=== PATIENT | male | born 1970 | race Caucasian/White ===

== ENCOUNTER 2022-03-29 17:18 | Inpatient (IN) | payer BC ==
--- NOTE | 2022-03-29 17:51 | RAD REPORT ---
EXAM DESCRIPTION: RAD - Chest Single View - 03/29/2022 5:46 pm CLINICAL HISTORY: hypoxic, tachypneic Chest pain. COMPARISON: No comparisons FINDINGS: Portable technique limits examination quality. The lungs are grossly clear. The heart is normal in size. No displaced fractures. IMPRESSION: No acute intrathoracic process suspected.
[2022-03-29] MEDS ORDERED: NA CHLORIDE 0.9% 2,000 ML ONE (18:05)
[2022-03-29 18:10] LABS: Absolute Lymphocytes (CBC) 3.7 K/uL (0.7-4.9); Hematocrit 47.5 % (39.6-49.0); Lymphocytes % 16.4 % (15.3-44.8); MPV 8.5 fL (7.6-11.3)
[2022-03-29 18:12] LABS: Protime INR 1.14
[2022-03-29] MEDS ORDERED: NA CHLORIDE 0.9% 1,000 ML ONE ×2 (18:19→21:32)
[2022-03-29 18:30] LABS: Barbiturates NEGATIVE (NEGATIVE); Benzodiazepines POSITIVE (NEGATIVE); Cocaine NEGATIVE (NEGATIVE); METHAMPHETAM NEGATIVE (NEGATIVE); Methadone NEGATIVE (NEGATIVE); Opiates NEGATIVE (NEGATIVE); Phencyclidine NEGATIVE (NEGATIVE); THC Cannibis NEGATIVE (NEGATIVE)
[2022-03-29 18:30] LABS: ALT/SGPT 69 U/L (12-78); AST/SGOT 47 U/L (15-37); Alkaline Phosphatase 81 U/L (45-117); BUN Blood Urea Nitrogen 29 mg/dL (7-18); Bicarbonate 22 mmol/L (21-32); Bilirubin Direct 0.5 mg/dL (0-0.2); Bilirubin Total 1.7 mg/dL (0.2-1.0); Glomerular Filtration Rate 34 ml/min (=/>90); Glucose Level 200 mg/dL (74-106); Potassium 3.6 mmol/L (3.5-5.1); Protein, Total 7.8 g/dL (6.4-8.2); Sodium Level 138 mmol/L (136-145)
[2022-03-29] MEDS ORDERED: NOREPINEPHRINE BITARTRATE/D5W 4 MG/250 ML BAG IV ONE (18:40)
[2022-03-29 20:41] LABS: Blood O2 Saturation 99.5 % (92-98.5)
[2022-03-29 20:42] LABS: Arterial Blood Carboxyhemoglob 0.9 % (0-1.5); Blood Gas Oxyhemoglobin 97.4 % (94-97)
--- NOTE | 2022-03-29 21:31 | P.HP ---
Certification for Inpatient Patient admitted to: Inpatient With expected LOS: <2 Midnights Patient will require the following post-hospital care: Other Practitioner: I am a practitioner with admitting privileges, knowledge of patient current condition, hospital course, and medical plan of care. Services: Services provided to patient in accordance with Admission requirements found in Title 42 Section 412.3 of the Code of Federal Regulations Patient History Date of Service: 03/30/22 Reason for admission: Benzo OD History of Present Illness: Patient is a 52-year-old male with hypertension who presented to the ED after attempted suicide attempt. Patient reports that he took 3 5mg Valium pills and then attempted to hang himself with a dog collar, but it snapped. He reports that he has been having suicidal ideations on and off for 10 years. His mother recently which has caused an increase in his stress. Patient was hypoxic on room air and eventually escalated to requiring BiPAP. ABG with pH of 7.25, PO2 424, bicarb 18.6. CT traumagram was negative. Labs significant for WBC 22.6, BUN 29, creatinine 2.29, CK5 85, UDS positive for benzos. He was initially hypotensive and requiring Levophed, but has since been weaned off. He is still requiring bipap, but is now resting comfortably. Patient is admitted for further management. Allergies No Known Allergies Allergy (Unverified 03/29/22 22:01) Home medications list reviewed: Yes - Past Medical/Surgical History Diabetic: No -: Hypertension -: Appendectomy Psychosocial/ Personal History: Patient is . - Family History Family History: Reviewed- Non-Contributory - Social History Smoking Status: Never smoker Alcohol use: Yes CD- Drugs: No Caffeine use: Yes Place of Residence: Home Review of Systems Gastrointestinal: Abdominal Pain Physical Examination - Physical Exam General: Alert, In no apparent distress HEENT: Atraumatic, PERRLA, EOMI, Sclerae nonicteric Neck: Supple, 2+ carotid pulse no bruit, No LAD, Without JVD or thyroid abnormality Respiratory: Clear to auscultation bilaterally, Normal air movement Cardiovascular: Regular rate/rhythm, Normal S1 S2 Gastrointestinal: Normal bowel sounds, No tenderness Musculoskeletal: No tenderness Integumentary: No rashes Neurological: Normal speech, Normal strength at 5/5 x4 extr, Normal tone, Normal affect - Studies Laboratory Data (last 24 hrs) 03/29/22 17:53: PT 12.5, INR 1.14, APTT 31.7 03/29/22 17:53: WBC 22.60 H*, Hgb 16.1, Hct 47.5, Plt Count 201 03/29/22 17:53: Sodium 138, Potassium 3.6, BUN 29 H, Creatinine 2.29 H, Glucose 200 H, Total Bilirubin 1.7 H, AST 47 H, ALT 69, Alkaline Phosphatase 81 Assessment and Plan - Problems (Diagnosis) (1) Benzodiazepine (tranquilizer) overdose Current Visit: Yes Status: Acute Qualifiers: Encounter type: initial encounter Injury intent: intentional self-harm Qualified Code(s): T42.4X2A - Poisoning by benzodiazepines, intentional self- harm, initial encounter (2) Acute respiratory failure Current Visit: Yes Status: Acute Qualifiers: Respiratory failure complication: hypoxia Qualified Code(s): J96.01 - Acute respiratory failure with hypoxia (3) Hypotension Current Visit: Yes Status: Acute Qualifiers: Hypotension type: hypotension due to drug Qualified Code(s): I95.2 - Hypotension due to drugs - Plan Patient requiring BiPAP at this time. Continue as needed and monitor pulse oximetry. Continue IV fluid hydration. Monitor BP closely. Patient no longer requiring Levophed. Leukocytosis likely reactive. No indication for antibiotics at this time. Recheck CBC in the morning. Psychiatry consult. Case management consult as patient will likely need inpatient psychiatry upon disposition. Monitor and replete electrolytes per protocol. Reconcile and continue home medications. Lovenox for VTE ppx. Full code. Discharge Plan: Psychiatry Plan to discharge in: Greater than 2 days - Advance Directives Does patient have a Living Will: No Does patient have a Durable POA for Healthcare: No - Code Status/Comfort Care Code Status Assessed: Yes (Full) Critical Care: No Time Spent Managing Pts Care (In Minutes): 50
[2022-03-29] MEDS ORDERED: ACETAMINOPHEN 500 MG TAB PO PRN (22:02)
[2022-03-29] MEDS: NA CHLORIDE 0.9% 1,000 ML IV SCH (22:02)
[2022-03-29] MEDS ORDERED: ONDANSETRON 4 MG/2 ML VIAL IV PRN (22:02)
[2022-03-29 22:05] VITALS: BMI 28.2
[2022-03-29 22:07] LABS: SARS-CoV-2 Antigen Rapid Res Negative (Negative)
--- NOTE | 2022-03-30 01:03 | ER ---
Nurse's Notes [facility] Name: Jose Ball Age: 52 yrs Sex: Male : 1970 Arrival Date: 03/29/2022 Time: 17:19 Bed 5 Private MD: Diagnosis: Poisoning by benzodiazepines, intentional self-harm;Suicide attempt;Hypotension, unspecified Presentation: 03/29 18:05 Note C-SSRS paperwork not done upon pts arrival as pts medical condition was critical tw2 and [employer] computer system was down. 20:15 Acuity: CONCHITA 1 as6 Historical: - Allergies: 20:53 No Known Allergies; rt - Home Meds: 22:00 losartan oral [Active]; as6 - PMHx: 22:00 Hypertensive disorder; as6 - PSHx: 22:00 Appendectomy; as6 - Unable to obtain history due to: altered mental status. Assessment: 20:16 General: see paper charting for triage and prior vitals . as6 20:23 General: pt on BiPAP. at bedside. Levophed discontinued . as6 Vital Signs: 20:17 BP 115 / 82; Pulse 92; Resp 24 S; Temp 96.4(C); Pulse Ox 100% on 80% BiPAP; as6 21:47 BP 93 / 72; Pulse 68; Resp 17 S; Temp 97.5(C); Pulse Ox 100% on 80% BiPAP; as6 ED Course: 17:19 Patient arrived in ED. rn 17:19 Sukhjinder White MD is Attending Physician. rn 17:23 Kasey Gamino RN is Primary Nurse. tw2 19:55 Attending Physician role handed off by Sukhjinder White MD rt 19:55 William Keys MD is Attending Physician. rt 20:15 Triage completed. as6 20:45 Gema Olvera PA-C is Hospitalizing Provider. rt 03/30 01:09 RAD In Process Unspecified. EDMS 19:12 Primary Nurse role handed off by Kasey Gamino RN [email or web address] 03/31 09:00 Carmel Dial, JEANNE is Primary Nurse. ko1 Administered Medications: No medications were administered Outcome: 03/29 20:45 Decision to Hospitalize by Provider. rt 03/31 19:53 Patient left the ED. as6 Signatures: Dispatcher Yours Florally Sukhjinder Day MD MD rn Kasey Gamino RN RN tw2 Rupinder Hoff 2 Chetan Solorzano RN RN as6 Carmel Dial RN RN ko1 William Keys MD MD rt
--- NOTE | 2022-03-30 01:03 | EDPHYS ---
Physician Documentation [facility] Name: Jose Ball Age: 52 yrs Sex: Male : 1970 Arrival Date: 03/29/2022 Time: 17:19 Bed 5 Private MD: ED Physician William Keys HPI: 03/29 20:51 This 52 yrs old Male presents to ER via Unassigned with complaints of Intentional rt overdose. 20:51 Intentional overdose. Onset: The symptoms/episode began/occurred acutely. Severity of rt symptoms: At their worst the symptoms were severe. Presents to the ED with initial suicide attempt by taking several Valium pills. Attempted to hang himself by a dog collar but it snapped. Abdominal pain, generalized. Denies other acute complaints at this time, symptoms are severe in severity, no other aggravating or alleviating factors.. Historical: - Allergies: 20:53 No Known Allergies; rt - Home Meds: 22:00 losartan oral [Active]; as6 - PMHx: 22:00 Hypertensive disorder; as6 - PSHx: 22:00 Appendectomy; as6 - Unable to obtain history due to: altered mental status. ROS: 20:53 Unable to obtain ROS due to altered mental status. rt Exam: 20:53 Constitutional: This is a well developed, well nourished patient who is awake, alert, rt and in no acute distress. Head/Face: Normocephalic, atraumatic. Eyes: Pupils equal round and reactive to light, extra-ocular motions intact. Lids and lashes normal. Conjunctiva and sclera are non-icteric and not injected. Cornea within normal limits. Periorbital areas with no swelling, redness, or edema. ENT: Nares patent. No nasal discharge, no septal abnormalities noted. Tympanic membranes are normal and external auditory canals are clear. Oropharynx with no redness, swelling, or masses, exudates, or evidence of obstruction, uvula midline. Mucous membranes moist. Neck: Trachea midline, no thyromegaly or masses palpated, and no cervical lymphadenopathy. Supple, full range of motion without nuchal rigidity, or vertebral point tenderness. No Meningismus. Chest/axilla: Normal chest wall appearance and motion. Nontender with no deformity. No lesions are appreciated. Cardiovascular: Regular rate and rhythm with a normal S1 and S2. No gallops, murmurs, or rubs. Normal PMI, no JVD. No pulse deficits. Respiratory: Lungs have equal breath sounds bilaterally, clear to auscultation and percussion. No rales, rhonchi or wheezes noted. No increased work of breathing, no retractions or nasal flaring. Skin: Warm, dry with normal turgor. Normal color with no rashes, no lesions, and no evidence of cellulitis. MS/ Extremity: Pulses equal, no cyanosis. Neurovascular intact. Full, normal range of motion. 20:53 Neuro: Confusion, moves all 4 extremities equally. 20:53 Psych: Reports SI, denies HI. Vital Signs: 20:17 BP 115 / 82; Pulse 92; Resp 24 S; Temp 96.4(C); Pulse Ox 100% on 80% BiPAP; as6 21:47 BP 93 / 72; Pulse 68; Resp 17 S; Temp 97.5(C); Pulse Ox 100% on 80% BiPAP; as6 MDM: 17:19 Patient medically screened. rn 20:47 ED course: Patient charting on paper per downtime. rt 20:53 Differential Diagnosis Salicylate overdose acetaminophen overdose vascular injury, rt benzodiazepine overdose. Data reviewed: vital signs, nurses notes, EMS record, lab test result(s), radiologic studies. ED course: Patient presents to the ED with intentional overdose, patient became hypotensive, central line placed by Dr. White improved with hemodynamics on Levophed. Patient with improvement of mental status. Will be admitted to the ICU for further care.. 03/29 17:22 Order name: Acetaminophen rn 03/29 17:22 Order name: Basic Metabolic Panel rn 03/29 17:22 Order name: CBC with Diff rn 03/29 17:22 Order name: ETOH Level rn 03/29 17:22 Order name: Hepatic Function rn 03/29 17:22 Order name: PT-INR rn 03/29 17:22 Order name: Ptt, Activated rn 03/29 17:22 Order name: Salicylate rn 03/29 17:22 Order name: Urine Drug Screen rn 03/29 20:59 Order name: SARS RAPID as6 03/30 00:59 Order name: ABG Arterial Blood Gas; Complete Time: 07:46 EDMS 03/30 01:00 Order name: Creatine Phosphokinase; Complete Time: 07:46 EDKS 03/30 01:00 Order name: SARS-COV-2 Antigen Rapid; Complete Time: 07:46 EDKS 03/30 03:16 Order name: CBC with Automated Diff; Complete Time: 07:46 EDKS 03/29 17:22 Order name: EKG; Complete Time: 17:23 rn 03/29 17:22 Order name: EKG - Nurse/Tech; Complete Time: 20:24 rn 03/29 17:22 Order name: IV Saline Lock; Complete Time: 20:24 rn 03/29 17:22 Order name: XRAY Chest (1 view) rn 03/29 17:22 Order name: Neck Angio CT rn 03/29 17:22 Order name: CT Traumagram (Head C Spine CAP wo con) rn 03/30 00:58 Order name: RAD EDKS 03/30 03:36 Order name: Comprehensive Metabolic Panel; Complete Time: 07:46 EDKS 03/30 03:36 Order name: Phosphorus; Complete Time: 07:46 EDKS 03/30 03:36 Order name: Lipid Profile; Complete Time: 07:46 EDKS 03/30 03:36 Order name: Magnesium; Complete Time: 07:46 EDKS 03/30 03:36 Order name: Thyroid Stimulating Hormone; Complete Time: 07:46 EDKS 03/30 12:42 Order name: CT EDKS 03/30 14:03 Order name: Glucose, Ancillary Testing EDKS 03/31 05:07 Order name: CBC with Automated Diff EDKS 03/31 05:13 Order name: Comprehensive Metabolic Panel EDKS 03/29 17:22 Order name: Labs collected and sent; Complete Time: 20:24 rn 03/29 17:22 Order name: Suicide Precautions; Complete Time: 20:24 rn 03/29 17:22 Order name: Suicide Screening ([place]); Complete Time: 20:24 rn 03/29 17:22 Order name: Urine Dipstick-Ancillary (obtain specimen); Complete Time: 20:24 rn Administered Medications: No medications were administered Disposition Summary: 03/29/22 20:45 Hospitalization Ordered Hospitalization Status: Inpatient Admission rt Provider: Gema Olvera rt Condition: Guarded rt Problem: new rt Symptoms: have improved rt Bed/Room Type: Standard rt Location: Intensive Care Unit(03/31/22 18:50) dw Room Assignment: 6-(03/31/22 18:50) dw Diagnosis - Poisoning by benzodiazepines, intentional self-harm rt - Suicide attempt rt - Hypotension, unspecified rt Forms: - Medication Reconciliation Form rt - SBAR form rt Critical care time excluding procedures: 20:53 Critical care time: Bedside Care: 30 minutes, Consultation: 5 minutes. Total time: 35 rt minutes Signatures: Dispatcher [employer] Lulú Morrison RN RN Sukhjinder White MD MD rn Garcia, Cindy, RN RN cg Chetan Solorzano RN RN as6 William Keys MD MD rt Corrections: (The following items were deleted from the chart) 22:10 20:45 Intensive Care Unit rt cg 22:10 20:45 rt cg 03/31 18:50 03/29 22:10 [facility] ER HOLD cg 03/31 18:50 03/29 22:10 ERHOLD- cg 03/31 18:50 18:50 1- dw
[2022-03-30 03:16] LABS: Absolute Lymphocytes (CBC) 0.8 K/uL (0.7-4.9); Lymphocytes % 5.9 % (15.3-44.8); MCV 93.2 fL (80-100); MPV 8.6 fL (7.6-11.3); RBC Red Blood Cell Count 4.62 M/uL (4.33-5.43)
[2022-03-30 03:31] LABS: Albumin 3.6 g/dL (3.4-5.0); Bilirubin Total 1.3 mg/dL (0.2-1.0); Magnesium 2.5 mg/dL (1.8-2.4); Phosphorus 3.6 mg/dL (2.5-4.9); Potassium 5.5 mmol/L (3.5-5.1); Protein, Total 7.2 g/dL (6.4-8.2); Thyroid Stimulating Hormone 0.66 uIU/mL (0.360-3.740)
[2022-03-30] MEDS ORDERED: INFLUENZA VACCINE (for 6+ mo) 0.5 ML DOSE IMVAC ONE (08:00)
[2022-03-30] MEDS: NA CHLORIDE 0.9% 1,000 ML IV SCH ×2 (08:02→18:02)
--- NOTE | 2022-03-30 08:21 | EKG ---
Test Date: 2022-03-29 Test Time: 17:51:01 Senior Paralegal: KITTY MEASUREMENT RESULTS: Intervals: Rate: 117 IA: 156 QRSD: 108 QT: 336 QTc: 468 [place]: P: 64 IA: 156 QRS: 61 T: 29 INTERPRETIVE STATEMENTS: Sinus tachycardia Incomplete right bundle branch block ST depression, consider subendocardial injury or digitalis effect Abnormal ECG No previous ECG available for comparison Electronically Signed On 03-30-22 08:19:45 [employer] by Homer Cisneros
[2022-03-30] MEDS: ENOXAPARIN 40 MG/0.4 ML SQ SCH (09:00)
[2022-03-30] MEDS ORDERED: NA CHLORIDE 0.9% 1,000 ML ONE ×2 (11:18→21:33)
[2022-03-30] MEDS ORDERED: ENOXAPARIN 40 MG/0.4 ML SQ ONE (11:18)
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
[2022-03-31 05:02] LABS: Absolute Lymphocytes (CBC) 1.3 K/uL (0.7-4.9); Hematocrit 37.8 % (39.6-49.0); Lymphocytes % 13.6 % (15.3-44.8); MPV 8.4 fL (7.6-11.3); RBC Red Blood Cell Count 4.11 M/uL (4.33-5.43)
[2022-03-31 05:12] LABS: Albumin 3.1 g/dL (3.4-5.0); Bilirubin Total 1.1 mg/dL (0.2-1.0); Potassium 3.9 mmol/L (3.5-5.1); Protein, Total 6.4 g/dL (6.4-8.2)
[2022-03-31] MEDS: NA CHLORIDE 0.9% 1,000 ML IV SCH ×2 (09:00→21:12)
[2022-03-31] MEDS: ENOXAPARIN 40 MG/0.4 ML SQ SCH (09:00)
[2022-03-31] MEDS ORDERED: ACETAMINOPHEN 500 MG TAB ONE (15:30)
[2022-03-31] MEDS ORDERED: HYDRALAZINE HCL 20 MG/ML VIAL IV PRN (20:30)
[2022-03-31] MEDS ORDERED: PSEUDOEPHEDRINE 30 MG TAB PO PRN (21:18)
[2022-03-31] MEDS ORDERED: GUAIFENESIN 600 MG SA TAB PO PRN (23:43)
[2022-04-01] MEDS: NA CHLORIDE 0.9% 1,000 ML IV SCH (00:02)
--- NOTE | 2022-04-01 00:56 | P.PN ---
Subjective Date of Service: 03/30/22 PATIENT IS STILL VERY LETHARGIC. PATIENT WITH OVERDOSE. SUICIDAL ATTEMPT. TRIED TO HANG HIMSELF. STATES HE HAS BEEN HEARING VOICES FOR QUITE A WHILE. IF IN TELLING HIM TO KILL HIMSELF FOR ABOUT 10 YEARS. AFTER MEETING HIS HE STATES THE VOICES QUIETED DOWN. HOWEVER, OVER THE LAST YEAR AND A HALF HE HAS BEEN HAVING TO WORK QUITE A BIT. 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 HE FEELS LIKE HE IS A FAILURE IN LIFE. HE DECIDED TO GO AHEAD AND HIS LIFE. HE TOOK ABOUT 30 VALIUM WELL ATTEMPTED TO HANG HIMSELF WITH A BELT. HE WAS UNSUCCESSFUL. ARRIVED TO THE ER AND STARTED ON BIPAP. WEAN HIM OFF THE BIPAP MORE AWAKE AND NOW ON ROOM AIR. Review of Systems 10-point ROS is otherwise unremarkable Physical Examination - Vital Signs Temperature: 98.8 F Blood Pressure: 154/87 Pulse: 78 Respirations: 23 Pulse Ox (%): 98 - Physical Exam General: Alert, In no apparent distress, Oriented x3 HEENT: Atraumatic, PERRLA, EOMI Neck: Supple, JVD not distended Respiratory: Clear to auscultation bilaterally, Normal air movement Cardiovascular: Regular rate/rhythm, Normal S1 S2 Gastrointestinal: Normal bowel sounds, Soft and benign, Non-distended, No tenderness Musculoskeletal: No clubbing, No swelling, No tenderness Neurological: Sensation intact, Cranial nerves 3-12 intact Other Physical/Emotional Findings: PATIENT IS SUICIDAL. - Studies Medications List Reviewed: Yes Assessment & Plan - Problems (Diagnosis) (1) Suicide attempt by benzodiazepine overdose Current Visit: Yes Status: Acute (2) Acute respiratory failure Current Visit: Yes Status: Acute Qualifiers: Respiratory failure complication: hypoxia Qualified Code(s): J96.01 - Acute respiratory failure with hypoxia (3) Leukocytosis Current Visit: Yes Status: Acute (4) DORIS (acute kidney injury) Current Visit: Yes Status: Acute - Plan PLAN: 1. ARRANGE FOR INPATIENT PSYCHIATRIC FACILITY PLACEMENT. 2. EVALUATION BY [facility] 3. ANTIDEPRESSANT 4. HYDRATE 5. MONITOR WBC CT Discharge Plan: Home Plan to discharge in: Greater than 2 days - Advance Directives Does patient have a Living Will: No Does patient have a Durable POA for Healthcare: No - Code Status/Comfort Care Code Status Assessed: Yes Code Status: Full Code Critical Care: No Time Spent Managing PTS Care (In Minutes): 35
--- NOTE | 2022-04-01 00:58 | P.PN ---
Date of Service: 03/31/22 Subjective ARRANGING FOR PLACEMENT AT THIS TIME. PATIENT REGRESSED TRY THE HURT HIMSELF. HOWEVER, AFTER TALKING TO [facility] PSYCHOLOGIST WILL GO AHEAD AND ARRANGE FOR INPATIENT PSYCHIATRY. 03/30 PATIENT IS STILL VERY LETHARGIC. PATIENT WITH OVERDOSE. SUICIDAL ATTEMPT. TRIED TO HANG HIMSELF. STATES HE HAS BEEN HEARING VOICES FOR QUITE A WHILE. IF IN TELLING HIM TO KILL HIMSELF FOR ABOUT 10 YEARS. AFTER MEETING HIS HE STATES THE VOICES QUIETED DOWN. HOWEVER, OVER THE LAST YEAR AND A HALF HE HAS BEEN HAVING TO WORK QUITE A BIT. 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 HE FEELS LIKE HE IS A FAILURE IN LIFE. HE DECIDED TO GO AHEAD AND HIS LIFE. HE TOOK ABOUT 30 VALIUM WELL ATTEMPTED TO HANG HIMSELF WITH A BELT. HE WAS UNSUCCESSFUL. ARRIVED TO THE ER AND STARTED ON BIPAP. WEAN HIM OFF THE BIPAP MORE AWAKE AND NOW ON ROOM AIR. Review of Systems 10-point ROS is otherwise unremarkable Physical Examination - Vital Signs REVIEWED - Physical Exam General: Alert, In no apparent distress, Oriented x3 Respiratory: Clear to auscultation bilaterally, Normal air movement Cardiovascular: Regular rate/rhythm, Normal S1 S2 Gastrointestinal: Normal bowel sounds, Soft and benign, Non-distended, No tenderness Musculoskeletal: No clubbing, No swelling, No tenderness Neurological: Sensation intact, Cranial nerves 3-12 intact Other Physical/Emotional Findings: PATIENT IS SUICIDAL. Assessment & Plan - Problems (Diagnosis) (1) Suicide attempt by benzodiazepine overdose Current Visit: Yes Status: Acute (2) Acute respiratory failure Current Visit: Yes Status: Acute Qualifiers: Respiratory failure complication: hypoxia Qualified Code(s): J96.01 - Acute respiratory failure with hypoxia (3) Leukocytosis Current Visit: Yes Status: Acute (4) DORIS (acute kidney injury) Current Visit: Yes Status: Acute - Plan CONTINUE WITH PLAN OF CARE MENTIONED BELOW: 1. ARRANGE FOR INPATIENT PSYCHIATRIC FACILITY PLACEMENT. 2. EVALUATION BY [facility] COMPLETED; PLACEMENT PENDING 3. ANTIDEPRESSANT 4. RENAL FUNCTION AND WBC CT IMPROVED
[2022-04-01 04:51] LABS: Absolute Lymphocytes (CBC) 1.4 K/uL (0.7-4.9); Hematocrit 37.8 % (39.6-49.0); Lymphocytes % 14.5 % (15.3-44.8); MCV 91.8 fL (80-100); MPV 8.9 fL (7.6-11.3); RBC Red Blood Cell Count 4.12 M/uL (4.33-5.43)
[2022-04-01 05:04] LABS: Albumin 3.4 g/dL (3.4-5.0); Bilirubin Total 1.5 mg/dL (0.2-1.0); Potassium 3.7 mmol/L (3.5-5.1); Protein, Total 6.9 g/dL (6.4-8.2)
[2022-04-01] MEDS: ENOXAPARIN 40 MG/0.4 ML SQ SCH (08:24)
[2022-04-01 10:33] VITALS: O2SAT 96
--- NOTE | 2022-04-01 12:16 | P.PN ---
Date of Service: 04/01/22 Subjective Awaiting placement at this time. Once we get acceptance patient could get transferred. We do not have a shelter warrant on him right now as he is wanting to go on his own accord's. We will see how he does over the next 24 to 48 hours. [facility] met with the patient and they felt he needs inpatient hospitalization as well. 03/30 PATIENT IS STILL VERY LETHARGIC. PATIENT WITH OVERDOSE. SUICIDAL ATTEMPT. TRIED TO HANG HIMSELF. STATES HE HAS BEEN HEARING VOICES FOR QUITE A WHILE. IF IN TELLING HIM TO KILL HIMSELF FOR ABOUT 10 YEARS. AFTER MEETING HIS HE STATES THE VOICES QUIETED DOWN. HOWEVER, OVER THE LAST YEAR AND A HALF HE HAS BEEN HAVING TO WORK QUITE A BIT. 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 HE FEELS LIKE HE IS A FAILURE IN LIFE. HE DECIDED TO GO AHEAD AND HIS LIFE. HE TOOK ABOUT 30 VALIUM WELL ATTEMPTED TO HANG HIMSELF WITH A BELT. HE WAS UNSUCCESSFUL. ARRIVED TO THE ER AND STARTED ON BIPAP. WEAN HIM OFF THE BIPAP MORE AWAKE AND NOW ON ROOM AIR. Review of Systems 10-point ROS is otherwise unremarkable Physical Examination - Vital Signs REVIEWED - Physical Exam General: Alert, In no apparent distress, Oriented x3 Respiratory: Clear to auscultation bilaterally, Normal air movement Cardiovascular: Regular rate/rhythm, Normal S1 S2 Gastrointestinal: Normal bowel sounds, Soft and benign, Non-distended, No tenderness Musculoskeletal: No clubbing, No swelling, No tenderness Neurological: Sensation intact, Cranial nerves 3-12 intact Other Physical/Emotional Findings: PATIENT IS SUICIDAL. Assessment & Plan - Problems (Diagnosis) (1) Suicide attempt by benzodiazepine overdose Current Visit: Yes Status: Acute (2) Acute respiratory failure Current Visit: Yes Status: Acute Qualifiers: Respiratory failure complication: hypoxia Qualified Code(s): J96.01 - Acute respiratory failure with hypoxia (3) Leukocytosis Current Visit: Yes Status: Acute (4) DORIS (acute kidney injury) Current Visit: Yes Status: Acute - Plan CONTINUE WITH PLAN OF CARE MENTIONED BELOW: 1. ARRANGE FOR INPATIENT PSYCHIATRIC FACILITY PLACEMENT. 2. EVALUATION BY [facility] COMPLETED; PLACEMENT PENDING 3. ANTIDEPRESSANT 4. RENAL FUNCTION AND WBC CT IMPROVED
--- NOTE | 2022-04-01 12:19 | P.DS ---
Discharge Date: 04/01/22 Reason for Admission: Benzo OD - Problems (1) Suicide attempt by benzodiazepine overdose Current Visit: Yes Status: Acute (2) Acute respiratory failure Current Visit: Yes Status: Acute Qualifiers: Respiratory failure complication: hypoxia Qualified Code(s): J96.01 - Acute respiratory failure with hypoxia (3) Leukocytosis Current Visit: Yes Status: Acute (4) DORIS (acute kidney injury) Current Visit: Yes Status: Acute Brief History of Present Illness: Patient is a 52-year-old male with hypertension who presented to the ED after attempted suicide attempt. Patient reports that he took 3 5mg Valium pills and then attempted to hang himself with a dog collar, but it snapped. He reports that he has been having suicidal ideations on and off for 10 years. His mother recently which has caused an increase in his stress. Patient was hypoxic on room air and eventually escalated to requiring BiPAP. ABG with pH of 7.25, PO2 424, bicarb 18.6. CT traumagram was negative. Labs significant for WBC 22.6, BUN 29, creatinine 2.29, CK5 85, UDS positive for benzos. He was initially hypotensive and requiring Levophed, but has since been weaned off. He is still requiring bipap, but is now resting comfortably. Patient is admitted for further management. Hospital Course: Pt is medically stable for discharge. Awaiting for psych placement and we should have a bed available today. At this time we will go ahead and transfer him to inpatient psych once a bed becomes available. Patient is medically stable for transfer Vital Signs/Physical Exam: Temp Pulse Resp BP Pulse Ox 97.2 F 74 22 H 156/94 H 98 04/01/22 08:00 04/01/22 08:00 04/01/22 08:00 04/01/22 08:00 04/01/22 00:56 General: Alert, In no apparent distress, Oriented x3 Other Physical/Emotional Findings: PATIENT IS SUICIDAL. Laboratory Data at Discharge: WBC 9.40 K/uL (4.3-10.9) 04/01/22 04:30 Hgb 13.4 g/dL (13.6-17.9) L 04/01/22 04:30 Hct 37.8 % (39.6-49.0) L 04/01/22 04:30 Plt Count 129 K/uL (152-406) L 04/01/22 04:30 PT 12.5 SECONDS (9.5-12.5) 03/29/22 17:53 INR 1.14 03/29/22 17:53 APTT 31.7 SECONDS (24.3-36.9) 03/29/22 17:53 Sodium 141 mmol/L (136-145) 04/01/22 04:30 Potassium 3.7 mmol/L (3.5-5.1) 04/01/22 04:30 BUN 13 mg/dL (7-18) 04/01/22 04:30 Creatinine 1.36 mg/dL (0.55-1.3) H 04/01/22 04:30 Glucose 124 mg/dL (74-106) H 04/01/22 04:30 Phosphorus 3.6 mg/dL (2.5-4.9) 03/30/22 02:23 Magnesium 2.5 mg/dL (1.8-2.4) H 03/30/22 02:23 Total Bilirubin 1.5 mg/dL (0.2-1.0) H 04/01/22 04:30 AST 32 U/L (15-37) 04/01/22 04:30 ALT 49 U/L (12-78) 04/01/22 04:30 Alkaline Phosphatase 62 U/L (45-117) 04/01/22 04:30 Triglycerides 93 mg/dL (<150) 03/30/22 02:23 Cholesterol 160 mg/dL (<200) 03/30/22 02:23 HDL Cholesterol 40 mg/dL (40-60) 03/30/22 02:23 Cholesterol/HDL Ratio 4.00 03/30/22 02:23 Home Medications: Losartan Potassium 25 mg PO DAILY 03/31/22 Physician Discharge Instructions: Transfer to inpatient psych Diet: Regular Activity: Fall precautions Followup: NONE,NONE [Primary Care Provider] - Time spent managing pt's care (in minutes): 35
[2022-04-01] MEDS ORDERED: METOPROLOL TAR 25 MG TAB PO ONE (12:30)
[2022-04-01 13:00] VITALS: BP 163/95
[2022-04-01 14:30] VITALS: TEMP 97.8
[2022-04-01] MEDS ORDERED: METOPROLOL TAR 25 MG TAB PO SCH (18:00)
[2022-04-02] MEDS ORDERED: AMLODIPINE 10 MG TAB PO SCH (09:00)
[2022-04-02 14:15] LABS: Urine Blood Negative (Negative); Urine Glucose Negative (Negative); Urine Protein Negative (Negative); Urine Specific Gravity >=1.030 (1.005-1.030); Urine pH 5.5 (5.0-7.0)
== END 2022-04-01 14:25 | DRG 917 ==
LOC: ER 17:18 → ERHOLD 21:27 → 3RD-ICU 03-31 19:29
PROVIDERS: ADMIT Hospitalist; ATTEND Hospitalist
PROC: 5A09457 Assistance with Respiratory Ventilation, 24-96 Consecutive Hours, Continuous Positive Airway Pressure (ICD-10-PCS; principal; 2022-03-29)
DX: T42.4X2A Poisoning by benzodiazepines, intentional self-harm, initial encounter (principal); J96.01 Acute respiratory failure with hypoxia; N17.9 Acute kidney failure, unspecified; I10 Essential (primary) hypertension; I95.2 Hypotension due to drugs; D72.829 Elevated white blood cell count, unspecified; Z90.49 Acquired absence of other specified parts of digestive tract; Z20.822 Contact with and (suspected) exposure to COVID-19; Z79.899 Other long term (current) drug therapy; T14.91XA Suicide attempt, initial encounter; X83.8XXA Intentional self-harm by other specified means, initial encounter
CPT/HCPCS: 36415; 70450; 71045; 71250; 72125; 80048; 80053; 80061; 80076; 80307; 80320; 80329; 81003; 82550; 82805; 82947; 83735; 84100; 84443; 85025; 85610; 85730; 87811; 93005; 94660; 94760; 99284; J1650; J7030